=== PATIENT | female | born 1960 ===

== ENCOUNTER 2018-11-17 12:37 | Emergency (ER) | payer MEDICARE, OTHER ==
[~2018-11-17] VITALS: Ht 167.6 cm; Wt 158.8 kg
[~2018-11-17 12:37] MED LIST: Lopressor 50 mg50 MG PO; Veetids 500500 MG PO
[2018-11-17] MEDS ORDERED: THERA1 EACH PO (13:06)
[2018-11-17] MEDS ORDERED: [UNRECOGNIZED DRUG - OTHER] PO (13:07)
[2018-11-17] MEDS ORDERED: CRANBERRY250 MG PO (13:07)
[2018-11-17] MEDS ORDERED: SLIPPERY ELM PO (13:08)
== END 2018-11-17 13:32 | disposition home or self-care (01) ==
LOC: ER 12:37
DX: R11.0 Nausea (principal); T50.995A Adverse effect of other drugs, medicaments and biological substances, initial encounter; E11.9 Type 2 diabetes mellitus without complications; Z88.2 Allergy status to sulfonamides; Z88.1 Allergy status to other antibiotic agents; Z88.8 Allergy status to other drugs, medicaments and biological substances; Z79.899 Other long term (current) drug therapy
CPT/HCPCS: 99283

== ENCOUNTER 2019-02-03 12:33 | Emergency (ER) | payer MEDICARE, OTHER ==
[~2019-02-03] VITALS: Ht 167.6 cm; Wt 158.8 kg
[~2019-02-03 12:33] MED LIST changes: +CRANBERRY250 MG PO; +SLIPPERY ELM PO; +THERA1 EACH PO; +[UNRECOGNIZED DRUG - OTHER] PO
[2019-02-03] MEDS ORDERED: TRAM50 PO (13:40)
== END 2019-02-03 13:53 | disposition home or self-care (01) ==
LOC: ER 12:33
DX: M75.32 Calcific tendinitis of left shoulder (principal); E11.9 Type 2 diabetes mellitus without complications; I10 Essential (primary) hypertension; Z88.8 Allergy status to other drugs, medicaments and biological substances; Z88.6 Allergy status to analgesic agent; Z91.041 Radiographic dye allergy status; Z88.2 Allergy status to sulfonamides; Z88.5 Allergy status to narcotic agent; Z79.899 Other long term (current) drug therapy
CPT/HCPCS: 73030; 99283-25

== ENCOUNTER → 2022-06-18 | Outpatient (CLI) | payer MEDICARE, OTHER ==
[~2022-06-18] MED LIST changes: +TRAM50 PO
[2022-06-18 16:50] LABS: Creatinine, Urine Random 38.9 mg/dL (27.00-270.00)
[2022-06-18 17:09] LABS: Microalb/Creat Ratio UR, Rand 17.918 mg/g (0.000-30.000); Microalbumin, Random Urine 6.97 mg/L (0.000-20.000)
== END ==
LOC: LAB 09:36 → LAB SHORT 09:36
PROVIDERS: Internal Medicine Endocrinology, Diabetes & Metabolism
DX: E11.65 Type 2 diabetes mellitus with hyperglycemia (principal)
CPT/HCPCS: 82043; 82570

== ENCOUNTER → 2023-05-16 | Outpatient (CLI) | payer MEDICARE, OTHER ==
[2023-05-24 12:39] LABS: Stool Occult Bld Immuno 1 Negative (NEGATIVE)
== END ==
LOC: LAB 13:00 → LAB SHORT 13:00
PROVIDERS: Nurse Practitioner Family
DX: Z12.11 Encounter for screening for malignant neoplasm of colon (principal)
CPT/HCPCS: G0328

== ENCOUNTER → 2023-06-01 | Outpatient (CLI) | payer MEDICARE, OTHER | END | disposition home or self-care (01) | LOC: LAB 12:48 → LAB SHORT 12:48 | DX: E11.65 Type 2 diabetes mellitus with hyperglycemia (principal); Z79.4 Long term (current) use of insulin | CPT/HCPCS: 82043 ==

== ENCOUNTER 2024-07-12 17:21 | Inpatient (IN) | payer MEDICARE, OTHER ==
[~2024-07-12] VITALS: Ht 167.6 cm; Wt 152.5 kg
[2024-07-12] MEDS ORDERED: FentaNYL Citrate 50 MCG/ML 2 ML Injection ONE (17:39)
[2024-07-12] MEDS ORDERED: NS 3,000 ML IV ONE (17:44)
[2024-07-12 18:59] LABS: BASOPHILS ABSOLUTE AUTO 0.05 K/mm3 (0.00-0.23); BASOPHILS PERCENT AUTO 0 % (0-2); EOSINOPHILS ABSOLUTE AUTO 0.01 K/mm3 (0.00-0.68); EOSINOPHILS PERCENT AUTO 0 % (0-6); Hematocrit 39.9 % (33.0-51.0); IMMATURE GRAN ABSOLUTE AUTO 0.08 K/mm3 (0.00-0.10); IMMATURE GRAN PERCENT AUTO 1 % (0-1); LYMPHOCYTES ABSOLUTE AUTO 1.12 K/mm3 (0.84-5.20); LYMPHOCYTES PERCENT AUTO 7 % (21-46); MONOCYTES ABSOLUTE AUTO 0.69 K/mm3 (0.16-1.47); MONOCYTES PERCENT AUTO 4 % (4-13); Mean Corpuscular HGB 26.9 pg (26.0-34.0); Mean Corpuscular HGB Conc 32.6 g/dL (31.5-36.5); Mean Corpuscular Volume 82 fL (80-100); Mean Platelet Volume 9.3 fL (9.1-12.4); NEUTROPHILS ABSOLUTE AUTO 13.85 K/mm3 (1.96-9.15); NEUTROPHILS PERCENT AUTO 88 % (41-73); Platelet Count 342 K/mm3 (150-400); RDW Coefficient Variation 13.7 % (11.7-14.2); RDW Standard Deviation 41.1 fL (35.1-46.3); Red Blood Cell Count 4.84 M/mm3 (3.80-5.20)
[2024-07-12 19:14] LABS: Albumin, Blood 3.4 g/dL (3.4-5.0); Albumin/Globulin Ratio 0.8 (0.8-1.8); Bilirubin, Total 0.5 mg/dL (0.1-1.0); Bun/Creatinine Ratio 20.2 (12.0-20.0); Calcium, Blood 9.6 mg/dL (8.5-10.1); Creatinine, Blood 0.5 mg/dL (0.40-1.00); Globulin, Blood 4.3 g/dL (2.2-4.0); Potassium, Blood 4.2 mmol/L (3.5-5.5); Total Protein, Blood 7.7 g/dL (6.4-8.2)
[2024-07-12 21:57] LABS: CORONAVIRUS COVID-19 AG Negative (NEGATIVE); INFLUENZA A AG Negative (NEGATIVE); INFLUENZA B AG Negative (NEGATIVE)
[2024-07-12] MEDS ORDERED: Meclizine HCl 25 MG Tab PO ONE (22:40)
[2024-07-12] MEDS ORDERED: Amoxicillin 875 MG Tab PO ONE (22:40)
[2024-07-13] MEDS ORDERED: Prochlorperazine Edisylate 10 mg Vial IV ONE (01:30)
[2024-07-13] MEDS ORDERED: NS 1,000 ML IV SCH (02:10)
[2024-07-13] MEDS ORDERED: Ondansetron HCl 2 MG / ML 2ML Vial IV PRN (02:55)
[2024-07-13] MEDS ORDERED: FLU VACC TS2024-25(6MOS UP)/PF 45 MCG/0.5 ML SYRINGE IM ONE (02:55)
[2024-07-13] MEDS ORDERED: Acetaminophen 325 MG TABLET PO PRN (02:55)
[2024-07-13 03:04] LABS: Magnesium, Blood 1.8 mg/dL (1.6-2.4); Phosphorus, Blood 3.1 mg/dL (2.5-4.9); Thyroid Stimulating Hormone 0.206 uIU/mL (0.360-4.800)
[2024-07-13 03:19] LABS: Source, Urine Clean Catch
[2024-07-13 03:23] LABS: Bilirubin, Urine Neg (Neg); Blood, Urine 5+ (Neg); Glucose Qualitative, Urine Neg (Neg); Ketones, Urine 2+ (Neg); Leukocyte Esterase, Urine 3+ (Neg); Nitrite, Urine Pos (Neg); Protein, Urine 2+ (Neg); Specific Gravity, Urine 1.025 (1.003-1.022); Urobilinogen, Urine 1+ (Normal)
[2024-07-13 03:24] LABS: Appearance, Urine Cloudy (Clear); Color, Urine Yellow (P-Yellow)
[2024-07-13 03:54] LABS: Amorphous Light (0-Heavy); Bacteria Mod /hpf; Mucus Light (0-Heavy); Red Blood Cells, Urine 25-50 /hpf (0-2); Squamous Epithelial Cells Few /hpf (Few); White Blood Cells, Urine TNTC /hpf (0-5)
[2024-07-13 05:46] LABS: BASOPHILS ABSOLUTE AUTO 0.05 K/mm3 (0.00-0.23); BASOPHILS PERCENT AUTO 0 % (0-2); EOSINOPHILS ABSOLUTE AUTO 0.09 K/mm3 (0.00-0.68); EOSINOPHILS PERCENT AUTO 1 % (0-6); Hematocrit 36.1 % (33.0-51.0); Hemoglobin 11.8 g/dL (11.5-16.0); IMMATURE GRAN ABSOLUTE AUTO 0.08 K/mm3 (0.00-0.10); IMMATURE GRAN PERCENT AUTO 1 % (0-1); LYMPHOCYTES ABSOLUTE AUTO 2.39 K/mm3 (0.84-5.20); LYMPHOCYTES PERCENT AUTO 17 % (21-46); MONOCYTES PERCENT AUTO 8 % (4-13); Mean Corpuscular HGB 27.1 pg (26.0-34.0); Mean Corpuscular HGB Conc 32.7 g/dL (31.5-36.5); Mean Corpuscular Volume 83 fL (80-100); Mean Platelet Volume 9.1 fL (9.1-12.4); NEUTROPHILS ABSOLUTE AUTO 10.46 K/mm3 (1.96-9.15); NEUTROPHILS PERCENT AUTO 74 % (41-73); Platelet Count 315 K/mm3 (150-400); RDW Coefficient Variation 13.9 % (11.7-14.2); RDW Standard Deviation 41.7 fL (35.1-46.3); Red Blood Cell Count 4.36 M/mm3 (3.80-5.20); White Blood Cell Count 14.17 K/mm3 (4.00-11.30)
[2024-07-13 06:12] LABS: Alanine Aminotransfer (ALT/SGP 20 U/L (12-78); Albumin/Globulin Ratio 0.8 (0.8-1.8); Alk Phos 83 U/L (50-136); Anion Gap 10 mmol/L (3-11); Aspartate Aminotrans (AST/SGOT 13 U/L (12-37); Bilirubin, Total 0.5 mg/dL (0.1-1.0); Blood Urea Nitrogen 10 mg/dL (8-24); Bun/Creatinine Ratio 23.7 (12.0-20.0); CHOL/HDL RATIO 4.7; CO2, Blood 28 mmol/L (21-32); Calcium, Blood 9.1 mg/dL (8.5-10.1); Chloride, Blood 103 mmol/L (98-108); Cholesterol 142 mg/dL (50-200); Creatinine, Blood 0.42 mg/dL (0.40-1.00); Globulin, Blood 3.7 g/dL (2.2-4.0); Glomerular Filtration Rate 110 (60-); Glucose, Blood 230 mg/dL (70-99); HDL Cholesterol 30 mg/dL (>39); LDL/HDL RATIO 2.9; Low Density Lipoprotein Chol 88 mg/dL (0-110); Magnesium, Blood 1.8 mg/dL (1.6-2.4); Potassium, Blood 3.6 mmol/L (3.5-5.5); Sodium, Blood 137 mmol/L (136-145); Total Protein, Blood 6.7 g/dL (6.4-8.2); Triglycerides 119 mg/dL (30-160); Very Low Density Lipoprot Chol 23 mg/dL (6-32)
[2024-07-13] MEDS ORDERED: Labetalol HCL 5 MG/ML 4ML Injection (Single Dose) IV PRN (07:45)
[2024-07-13] MEDS ORDERED: Atorvastatin 40 MG Tab PO SCH (09:00)
[2024-07-13 11:12] VITALS: BP 160/91
--- NOTE | 2024-07-13 11:48 | NUR ---
PT ADMITTED FROM THE ER, PT ABLE TO STAND AND TRANSFER TO THE BED WITH MIN ASSIST, PT IS ALERT AND ORIENTED X4, ORIENTED PT TO ROOM AND CALL SYSTEM, EDUCATED PT ABOUT FALL PREVENTION AND IGNITION RISK, PT DENIES ANY IGNITION SOURCES, PT'S FRIENDS IN TO VISIT, THEIR NUMBER IS ON THE BOARD, PT STATES THEY WILL BE CURRENT EMERGENCY CONTACT FOR THIS HOSPITAL STAY, THE FRIENDS STATED THEY WILL BE BRINGING IN HER HOME CPAP, WILL NOTIFY RT AND
[2024-07-13 15:53] VITALS: BP 158/88
--- NOTE | 2024-07-13 17:42 | NUR ---
SUMMARY PT RESTING IN BED, WAKES EASILY, HAS BEEN PLEASANT AND COOPERATIVE WITH CARE, USES THE CALL LIGHT APPROPRIATELY, UP WITH 1P ASSIST, HAS WORKED WITH PT/OT TODAY, FRIENDS BROUGHT HER HOME CPAP IN, RT IS AWARE AND WILL SET UP FOR THE PT, PT DENIES ANY PAIN OR SOB, VSS, WILL CONT TO MONITOR
[2024-07-13 19:19] VITALS: BP 155/81
[2024-07-14 00:50] VITALS: BP 157/65
[2024-07-14 04:35] VITALS: BP 149/65
[2024-07-14 06:37] LABS: BASOPHILS ABSOLUTE AUTO 0.06 K/mm3 (0.00-0.23); BASOPHILS PERCENT AUTO 1 % (0-2); EOSINOPHILS ABSOLUTE AUTO 0.16 K/mm3 (0.00-0.68); EOSINOPHILS PERCENT AUTO 1 % (0-6); Hematocrit 37.3 % (33.0-51.0); IMMATURE GRAN ABSOLUTE AUTO 0.03 K/mm3 (0.00-0.10); IMMATURE GRAN PERCENT AUTO 0 % (0-1); LYMPHOCYTES PERCENT AUTO 29 % (21-46); MONOCYTES ABSOLUTE AUTO 0.97 K/mm3 (0.16-1.47); MONOCYTES PERCENT AUTO 8 % (4-13); Mean Corpuscular HGB 27.3 pg (26.0-34.0); Mean Corpuscular HGB Conc 32.2 g/dL (31.5-36.5); Mean Corpuscular Volume 85 fL (80-100); Mean Platelet Volume 9.5 fL (9.1-12.4); NEUTROPHILS ABSOLUTE AUTO 7.04 K/mm3 (1.96-9.15); NEUTROPHILS PERCENT AUTO 60 % (41-73); Platelet Count 318 K/mm3 (150-400); RDW Coefficient Variation 13.7 % (11.7-14.2); RDW Standard Deviation 42.8 fL (35.1-46.3); White Blood Cell Count 11.66 K/mm3 (4.00-11.30)
[2024-07-14 07:18] LABS: Albumin, Blood 3.1 g/dL (3.4-5.0); Albumin/Globulin Ratio 0.9 (0.8-1.8); Bilirubin, Total 0.5 mg/dL (0.1-1.0); Bun/Creatinine Ratio 19.8 (12.0-20.0); Calcium, Blood 9.1 mg/dL (8.5-10.1); Creatinine, Blood 0.51 mg/dL (0.40-1.00); Globulin, Blood 3.5 g/dL (2.2-4.0); Potassium, Blood 3.4 mmol/L (3.5-5.5); Total Protein, Blood 6.6 g/dL (6.4-8.2)
[2024-07-14 07:21] VITALS: BP 166/83
[2024-07-14 16:55] VITALS: BP 171/73
--- NOTE | 2024-07-14 18:40 | NUR ---
SHIFT SUMMARY- PT ALERT AND ORIENTED, 1P SBA WITH AMBULATION. NEURO CHECKS HAVE BEEN NEGATIVE FOR ANY ADDITIONAL DEFICITES TODAY. PT HAS SLEPT WITH HER HOME CPAP IN PLACE MOST OF THE DAY, SHE REQUESTED AND A SHOWER WAS ATEMPTED BUT THERE WAS NOT HOT WATER. MAINTENANCE IS WORKING ON THAT. LINNENS WERE CHANGED AND THE PT WAS ASSISTED INTO A FRESH GOWN. PT IS CURRENTLY SITTING UP IN A RECLINER. ON TELE NSR IN THE 60'S WITH A BBB. NO ACUTE CHANGE T/O THE SHIFT. PT IS UNWILLING TO TRY NEW MEDICATIONS SHE OFTEN HAS DRUG REACTIONS. WILL PASS ON IN BEDSIDE REPORT TO NIGHT RN.
[2024-07-14 20:23] VITALS: BP 173/87
[2024-07-15 00:13] VITALS: BP 154/99
[2024-07-15 04:33] VITALS: BP 150/68
--- NOTE | 2024-07-15 05:22 | NUR ---
SHIFT SUMMARY PT ADMITTED FOR CVA. PT IS ON TELE THAT IS READING SINUS RHYTHM IN MID 60 S. PT WAS IN CHAIR FOR PART OF THE SHIFT AND THEN WENT TO BED AND APPEARED TO SLEEP THROUGH THE NIGHT. PT S BED IS IN LOW POSITION, CALL LIGHT WITHIN REACH, AND RAILS ARE TIMES 2.
[2024-07-15 05:29] LABS: BASOPHILS ABSOLUTE AUTO 0.07 K/mm3 (0.00-0.23); BASOPHILS PERCENT AUTO 1 % (0-2); EOSINOPHILS PERCENT AUTO 2 % (0-6); Hematocrit 37.9 % (33.0-51.0); Hemoglobin 12.2 g/dL (11.5-16.0); IMMATURE GRAN ABSOLUTE AUTO 0.04 K/mm3 (0.00-0.10); IMMATURE GRAN PERCENT AUTO 0 % (0-1); LYMPHOCYTES ABSOLUTE AUTO 3.13 K/mm3 (0.84-5.20); LYMPHOCYTES PERCENT AUTO 24 % (21-46); MONOCYTES ABSOLUTE AUTO 1.14 K/mm3 (0.16-1.47); MONOCYTES PERCENT AUTO 9 % (4-13); Mean Corpuscular HGB 27.1 pg (26.0-34.0); Mean Corpuscular HGB Conc 32.2 g/dL (31.5-36.5); Mean Corpuscular Volume 84 fL (80-100); Mean Platelet Volume 9.3 fL (9.1-12.4); NEUTROPHILS ABSOLUTE AUTO 8.49 K/mm3 (1.96-9.15); NEUTROPHILS PERCENT AUTO 65 % (41-73); Platelet Count 318 K/mm3 (150-400); RDW Coefficient Variation 13.7 % (11.7-14.2); RDW Standard Deviation 41.8 fL (35.1-46.3); White Blood Cell Count 13.07 K/mm3 (4.00-11.30)
[2024-07-15 05:50] LABS: Creatinine, Blood 0.43 mg/dL (0.40-1.00); Potassium, Blood 3.7 mmol/L (3.5-5.5)
[2024-07-15 08:12] VITALS: BP 159/79
--- NOTE | 2024-07-15 12:57 | NUR ---
PT HAD A LARGE MAT STARTING TO DEVELOPE IN THE BACK OF HER HAIR. HER HAIR WAS COMBED OUT AND BRAIDED BY THE RN TO PREVENT FURTHER MATTING. PT STATES SHE KNOWS SHE HAS A LOT OF HAIR, AND PEOPLE OFTEN TELL HER SHE SHOULD GET IT CUT, BUT SHE STATES IT'S THE "ON THING I FIND BEAUTIFUL ABOUT MYSELF." PT HAIR IS IN A BRAID NOW AND WILL TAKE LONGER TO DINESH. SHE SEEMS VERY HAPPY THAT IT IS DONE.
--- NOTE | 2024-07-15 15:21 | NUR ---
SHIFT SUMMARY- PT ALERT AND ORIENTED X4. PT HAS BEEN UP INTO THE CHAIR MOST OF THE DAY. SHE GOT TOO TIRED AFTER LUNCH AND DECIDED TO LAY DOWN. SHE IS CURRENTLY IN BED, CALL LIGHT IN REACH CPAP IN PLACE, TELE MONITOR ON NSR 65. PT IS AWAITING PLACEMENT IN SNF FOR DISCHARGE. PT IS WILLING TO GO TO SNF BUT STATES ONLY IF INSURANCE WILL COVER IT.
[2024-07-15 17:14] VITALS: BP 155/66
[2024-07-15 20:20] VITALS: BP 175/76
[2024-07-15 23:51] VITALS: BP 161/78
[2024-07-16 03:38] VITALS: BP 167/67
[2024-07-16 05:23] LABS: BASOPHILS ABSOLUTE AUTO 0.06 K/mm3 (0.00-0.23); BASOPHILS PERCENT AUTO 1 % (0-2); EOSINOPHILS ABSOLUTE AUTO 0.23 K/mm3 (0.00-0.68); EOSINOPHILS PERCENT AUTO 2 % (0-6); Hematocrit 39.6 % (33.0-51.0); Hemoglobin 12.7 g/dL (11.5-16.0); IMMATURE GRAN ABSOLUTE AUTO 0.06 K/mm3 (0.00-0.10); IMMATURE GRAN PERCENT AUTO 1 % (0-1); LYMPHOCYTES ABSOLUTE AUTO 2.93 K/mm3 (0.84-5.20); LYMPHOCYTES PERCENT AUTO 22 % (21-46); MONOCYTES ABSOLUTE AUTO 1.01 K/mm3 (0.16-1.47); MONOCYTES PERCENT AUTO 8 % (4-13); Mean Corpuscular HGB 27.1 pg (26.0-34.0); Mean Corpuscular HGB Conc 32.1 g/dL (31.5-36.5); Mean Corpuscular Volume 84 fL (80-100); Mean Platelet Volume 9.1 fL (9.1-12.4); NEUTROPHILS ABSOLUTE AUTO 8.89 K/mm3 (1.96-9.15); NEUTROPHILS PERCENT AUTO 67 % (41-73); Platelet Count 298 K/mm3 (150-400); RDW Coefficient Variation 13.8 % (11.7-14.2); RDW Standard Deviation 42.3 fL (35.1-46.3); Red Blood Cell Count 4.69 M/mm3 (3.80-5.20); White Blood Cell Count 13.18 K/mm3 (4.00-11.30)
[2024-07-16 06:00] LABS: Bun/Creatinine Ratio 19.2 (12.0-20.0); Creatinine, Blood 0.47 mg/dL (0.40-1.00); Potassium, Blood 3.8 mmol/L (3.5-5.5)
--- NOTE | 2024-07-16 06:43 | NUR ---
SHIFT SUMMARY PT ADMITTED FOR CVA. PT IS ON TELE THAT IS READING SINUS RHYTHM IN MID 60 S. PT WAS IN CHAIR FOR PART OF THE SHIFT, HAD HAIR BRAIDED ON DAY SHIFT. ASSISTED TO BED FROM REGULATORY AFFAIRS MANAGER AND APPEARED TO SLEEP THROUGH THE NIGHT. PT GOT OUT OF BED AT APPROXIMATELY 0145 AND WENT TO THE BATHROOM AND PULLED STAFF ASSIST CHORD WHILE USING THE BATHROOM. PT STATED THAT SHE COULD NOT FIND THE CALL LIGHT. PT PREFERRED FEMALE HELP, ADVISED PT IF SHE WAS OK BEFORE I WENT TO GET A FEMALE STAFF. SHE STATED SHE WAS FINE. STAFF ABLE TO ASSIST PT BACK TO BED AND LOCATE CALL LIGHT. PT S BED IS IN LOW POSITION, CALL LIGHT WITHIN REACH, AND RAILS ARE TIMES 2.
[2024-07-16 07:11] VITALS: BP 182/68
[2024-07-16 11:40] VITALS: BP 155/69
[2024-07-16 16:13] VITALS: BP 168/62
--- NOTE | 2024-07-16 18:44 | NUR ---
SHIFT SUMMARY PATIENT ALERT AND INTERACTIVE. PATIENT NOT ALLOWING STAFF TO HELP WITH PERSONAL CARE. PATIENT REQUESTING TO SHOWER BEFORE DISCHARGE. PATIENT CONTINUES TO HAVE A FOUL ODOR AFTER SHOWER. PATIENT EAGER TO GO HOME. PATIENT REFUSING TO TAKE ANY NEW MEDICATIONS BECAUSE OF ALLERGIES. PROVIDERS UPDATED. PATIENT EDUCATED ON RISKS FOR NOT CONTROLLING BP WITH MEDICATIONS. PATIENT STATES SHE IS MORE WORRIED ABOUT ALLERGIES. PATIENT TO DISCHARGE ONCE ORDERS PLACED.
== END 2024-07-16 22:37 | disposition home health service (06) | DRG 65 ==
LOC: ER 17:21 → MEDS 17:22 → ERHOLD 17:22 → MEDS 07-13 10:56
PROVIDERS: Emergency Medicine; Student in an Organized Health Care Education/Training Program; ADMIT Student in an Organized Health Care Education/Training Program
PROC: 5A09357 Assistance with Respiratory Ventilation, Less than 24 Consecutive Hours, Continuous Positive Airway Pressure (ICD-10-PCS; principal; 2024-07-13)
DX: I63.9 Cerebral infarction, unspecified (principal); Z68.43 Body mass index [BMI] 50.0-59.9, adult; R82.998 Other abnormal findings in urine; I44.0 Atrioventricular block, first degree; D72.829 Elevated white blood cell count, unspecified; E11.9 Type 2 diabetes mellitus without complications; I10 Essential (primary) hypertension; G47.33 Obstructive sleep apnea (adult) (pediatric); M79.7 Fibromyalgia; E66.01 Morbid (severe) obesity due to excess calories; R27.0 Ataxia, unspecified; Z88.1 Allergy status to other antibiotic agents; Z88.6 Allergy status to analgesic agent; Z88.2 Allergy status to sulfonamides; Z88.5 Allergy status to narcotic agent; Z88.8 Allergy status to other drugs, medicaments and biological substances; Z91.041 Radiographic dye allergy status
CPT/HCPCS: 36415; 70450; 80048; 80053; 80061; 81001; 83036; 83735; 84100; 84439; 84443; 84481; 84484; 85025; 87086; 87428-QW; 93005; 93010; 93306; 93880; 94762; 96360; 96361; 97110; 97116; 97161; 97165; 97530; 97535; 99285-25; A9270; G0378; J0780; J3010; J7030

== ENCOUNTER 2024-07-22 16:39 | Emergency (ER) | payer MEDICARE, OTHER ==
[~2024-07-22] VITALS: Ht 167.6 cm; Wt 140.6 kg
[2024-07-22 17:14] LABS: BASOPHILS ABSOLUTE AUTO 0.09 K/mm3 (0.00-0.23); BASOPHILS PERCENT AUTO 1 % (0-2); EOSINOPHILS ABSOLUTE AUTO 0.26 K/mm3 (0.00-0.68); EOSINOPHILS PERCENT AUTO 2 % (0-6); Hematocrit 41.2 % (33.0-51.0); Hemoglobin 13.4 g/dL (11.5-16.0); IMMATURE GRAN ABSOLUTE AUTO 0.06 K/mm3 (0.00-0.10); IMMATURE GRAN PERCENT AUTO 0 % (0-1); LYMPHOCYTES ABSOLUTE AUTO 2.36 K/mm3 (0.84-5.20); LYMPHOCYTES PERCENT AUTO 13 % (21-46); MONOCYTES ABSOLUTE AUTO 1.51 K/mm3 (0.16-1.47); MONOCYTES PERCENT AUTO 9 % (4-13); Mean Corpuscular HGB 27.2 pg (26.0-34.0); Mean Corpuscular HGB Conc 32.5 g/dL (31.5-36.5); Mean Corpuscular Volume 84 fL (80-100); Mean Platelet Volume 9.5 fL (9.1-12.4); NEUTROPHILS PERCENT AUTO 76 % (41-73); Platelet Count 319 K/mm3 (150-400); RDW Coefficient Variation 13.7 % (11.7-14.2); Red Blood Cell Count 4.93 M/mm3 (3.80-5.20); White Blood Cell Count 17.78 K/mm3 (4.00-11.30)
[2024-07-22 17:39] LABS: Albumin, Blood 3.5 g/dL (3.4-5.0); Albumin/Globulin Ratio 0.9 (0.8-1.8); Bilirubin, Total 0.5 mg/dL (0.1-1.0); Bun/Creatinine Ratio 18.8 (12.0-20.0); Calcium, Blood 9.6 mg/dL (8.5-10.1); Creatinine, Blood 0.43 mg/dL (0.40-1.00); Globulin, Blood 4.1 g/dL (2.2-4.0); Magnesium, Blood 1.9 mg/dL (1.6-2.4); Total Protein, Blood 7.6 g/dL (6.4-8.2)
[2024-07-22 19:39] VITALS: BP 157/78
== END 2024-07-22 19:35 | disposition home or self-care (01) ==
LOC: ER 16:39
PROVIDERS: Physician Assistant
DX: L02.211 Cutaneous abscess of abdominal wall (principal); I10 Essential (primary) hypertension; E11.65 Type 2 diabetes mellitus with hyperglycemia; G47.33 Obstructive sleep apnea (adult) (pediatric); Z88.1 Allergy status to other antibiotic agents; Z91.041 Radiographic dye allergy status; Z88.6 Allergy status to analgesic agent; Z88.2 Allergy status to sulfonamides; Z88.5 Allergy status to narcotic agent; Z88.8 Allergy status to other drugs, medicaments and biological substances; Z79.4 Long term (current) use of insulin
CPT/HCPCS: 10060; 80053; 83735; 85025; 93005; 93010; 99284-25

== ENCOUNTER → 2024-12-28 | Outpatient (CLI) | payer MEDICARE, OTHER ==
[2024-12-28 18:32] LABS: BASOPHILS ABSOLUTE AUTO 0.05 K/mm3 (0.00-0.23); BASOPHILS PERCENT AUTO 0 % (0-2); EOSINOPHILS ABSOLUTE AUTO 0.16 K/mm3 (0.00-0.68); EOSINOPHILS PERCENT AUTO 1 % (0-6); Hematocrit 39.4 % (33.0-51.0); Hemoglobin 12.9 g/dL (11.5-16.0); IMMATURE GRAN ABSOLUTE AUTO 0.04 K/mm3 (0.00-0.10); IMMATURE GRAN PERCENT AUTO 0 % (0-1); LYMPHOCYTES ABSOLUTE AUTO 2.49 K/mm3 (0.84-5.20); LYMPHOCYTES PERCENT AUTO 22 % (21-46); MONOCYTES ABSOLUTE AUTO 0.92 K/mm3 (0.16-1.47); MONOCYTES PERCENT AUTO 8 % (4-13); Mean Corpuscular HGB Conc 32.7 g/dL (31.5-36.5); Mean Corpuscular Volume 84 fL (80-100); NEUTROPHILS ABSOLUTE AUTO 7.53 K/mm3 (1.96-9.15); NEUTROPHILS PERCENT AUTO 67 % (41-73); NRBC ABSOLUTE 0.00 K/mm3 (0.00-0.02); NRBC Auto 0.0 /100 WBC (0.0-0.2); Platelet Count 299 K/mm3 (150-400); RDW Coefficient Variation 13.5 % (11.7-14.2); RDW Standard Deviation 41.5 fL (35.1-46.3)
[2024-12-28 19:28] LABS: Alanine Aminotransfer (ALT/SGP 26 U/L (12-78); Albumin, Blood 3.4 g/dL (3.4-5.0); Albumin/Globulin Ratio 0.8 (0.8-1.8); Anion Gap 6 mmol/L (3-11); Aspartate Aminotrans (AST/SGOT 15 U/L (12-37); Bilirubin, Total 0.3 mg/dL (0.1-1.0); Blood Urea Nitrogen 13 mg/dL (8-24); CHOL/HDL RATIO 20.5; CO2, Blood 30 mmol/L (21-32); Calcium, Blood 9.3 mg/dL (8.5-10.1); Chloride, Blood 101 mmol/L (98-108); Cholesterol 123 mg/dL (50-200); Creatinine, Blood 0.56 mg/dL (0.40-1.00); Globulin, Blood 4.1 g/dL (2.2-4.0); Glucose, Blood 390 mg/dL (70-99); HDL Cholesterol 6 mg/dL (>39); LDL/HDL RATIO 14.1; Low Density Lipoprotein Chol 85 mg/dL (0-110); Potassium, Blood 3.9 mmol/L (3.5-5.5); Sodium, Blood 133 mmol/L (136-145); Thyroid Stimulating Hormone 0.840 uIU/mL (0.360-4.800); Total Protein, Blood 7.5 g/dL (6.4-8.2); Triglycerides 162 mg/dL (30-160); Very Low Density Lipoprot Chol 32 mg/dL (6-32)
== END ==
LOC: LAB SHORT 17:13 → LAB 17:13
PROVIDERS: Nurse Practitioner Family
DX: E11.8 Type 2 diabetes mellitus with unspecified complications (principal); R53.83 Other fatigue
CPT/HCPCS: 80053; 80061; 83036; 84443; 85025